=== PATIENT | female | born 1935 | race Caucasian/White ===

== ENCOUNTER 2021-10-23 10:33 | Emergency (ER) | payer MEDICARE, SELFPAY ==
--- NOTE | ~2021-10-23 | CT_ITS ---
EXAMINATION: CT ANGIOGRAM OF THE CHEST WITH AND WITHOUT CONTRAST (CT PULMONARY ANGIOGRAM FOR PE) CLINICAL INFORMATION: Reason for Exam chest heaviness/sob/hx of non-Hodgkin's ? Pe COMPARISON: Chest CT 01/05/2017 TECHNIQUE: Prior to contrast administration, noncontrast localization images were obtained. Subsequently, multidetector volumetric imaging was performed from the thoracic inlet to below the diaphragms following the administration of 71 mL Omnipaque 350 intravenous contrast. No contrast reaction reported Sagittal, coronal, and MIP oblique sagittal reformatted images were obtained on the CT workstation, uploaded to PACS, and reviewed. This CT examination was performed using dose optimization techniques as appropriate, variously including the following: *Automated exposure control *Adjustment of mA and/or kV according to patient size (this includes techniques or standardized protocols for targeted exams where dose is matched to indication/reason for exam; i.e. extremities or head) *Use of iterative reconstruction technique Total exam dose-length product 259 mGy-cm FINDINGS: QUALITY OF STUDY/CONTRAST BOLUS: Satisfactory. PULMONARY ARTERIES: No central or segmental pulmonary emboli. Normal caliber central pulmonary trunk. THORACIC AORTA: No aneurysm or dissection. Mild to moderate vascular calcifications. Great vessel origins are patent. LUNG: Mild bibasilar subsegmental atelectasis. No airspace consolidation. No suspicious pulmonary nodules. Couple small sub-4 mm left upper lobe calcified granulomas are again noted. Central airways are clear. PLEURA: No pleural effusion or pneumothorax. MEDIASTINUM: No cardiomegaly. No appreciable coronary artery vascular calcifications. No mediastinal or hilar lymphadenopathy. Small subcentimeter low-density nodule in the right thyroid lobe, unchanged and of doubtful clinical significance. Left-sided chest port tip terminating in SVC. No evidence of septal bowing or right heart strain. CHEST WALL/AXILLA: No axillary or internal mammary lymphadenopathy. OSSEOUS STRUCTURES: No acute or suspicious osseous abnormality. 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 Acquired partial ankylosis T6-T7 and T8-T9. UPPER ABDOMEN: Moderate-sized hiatal hernia. Visualized solid upper abdominal viscera are grossly unremarkable. Colonic diverticulosis at the visualized hepatic flexure. No reflux of contrast into the hepatic veins to suggest elevated right heart pressures. CT/CT angio chest PE protocol IMPRESSION: 1. No evidence of central or segmental pulmonary embolus. 2. Mild bibasilar atelectasis. No airspace consolidation or effusions. 3. No lymphadenopathy. 4. Moderate-sized hiatal hernia. VTE: negative
--- NOTE | ~2021-10-23 | XR_ITS ---
EXAMINATION: XR CHEST CLINICAL INFORMATION: Chest heaviness COMPARISON: Previous chest x-ray May [address] December 2016 TECHNIQUE: 2 views of the chest were obtained. FINDINGS: The cardiac silhouette does not appear enlarged. The thoracic aorta is tortuous. There is an air-fluid level to projects behind the heart suggestive esophageal hernia. Hilar and mediastinal contours are otherwise unremarkable. There is a left subclavian port with tip projecting over the SVC. The lungs are clear. There is no pleural effusion or pneumothorax. There are degenerative changes of the spine. XR/XR chest 2V IMPRESSION: No evidence for acute disease in the chest.
--- NOTE | ~2021-10-23 | US_ITS ---
EXAMINATION: US VENOUS ULTRASOUND WITH DOPPLER LOWER EXTREMITY, BILATERAL CLINICAL INFORMATION: Elevated d-dimer and free of cancer. . COMPARISON: None TECHNIQUE: Ultrasound of the deep veins is performed from the hip to the calf with compression sonography and color and pulse Doppler assessment. Spectral analysis with color-flow imaging is performed. FINDINGS: RIGHT: There is normal venous compression and respiratory variation and augmented flow. The visualized common femoral vein, superficial femoral vein, profunda femoral vein, popliteal vein, and the trifurcation region shows no evidence of deep venous thrombosis. There is no significant popliteal fossa cyst. There is a anechoic fluid collection medial knee measuring 2.8 x 0.8 x 2.6 cm. LEFT: There is normal venous compression and respiratory variation and augmented flow. The visualized common femoral vein, superficial femoral vein, profunda femoral vein, popliteal vein, and the trifurcation region shows no evidence of deep venous thrombosis. There is no significant popliteal fossa cyst. If the patient's symptoms persist, followup ultrasound in 5 days 7 days might be of value to exclude proximal propagation from a non-visualized calf vein. US/US venous duplex LE BI IMPRESSION: No DVT demonstrated in the bilateral lower extremity. There is mild fluid collection along the right medial posterior knee.
--- NOTE | ~2021-10-23 | CT_ITS ---
EXAMINATION: CT HEAD WITHOUT CONTRAST CLINICAL INFORMATION: Lightheadedness COMPARISON: None TECHNIQUE: Contiguous axial imaging was performed from the skull base to vertex without intravenous administration of contrast. This CT examination was performed using dose optimization techniques as appropriate, variously including the following: *Automated exposure control *Adjustment of mA and/or kV according to patient size (this includes techniques or standardized protocols for targeted exams where dose is matched to indication/reason for exam; i.e. extremities or head) *Use of iterative reconstruction technique DLP: 686 mGy-cm FINDINGS: There is no evidence of acute intracranial hemorrhage or territorial infarction. No abnormal mass effect or midline shift is appreciated. Caban-white differentiation is well preserved. No extra-axial fluid collections. The ventricular system and cortical sulci are prominent, consistent with volume loss. There are areas of low density in the periventricular and subcortical white matter, most consistent with sequelae of microvascular ischemic change. Prominent bilateral basal ganglia calcifications. The osseous structures and soft tissues are normal. There are calcifications of the cavernous internal carotid arteries. The visualized paranasal sinuses and mastoid air cells are well aerated. CT/CT head/brain wo con IMPRESSION: Chronic microvascular ischemic changes with no CT evidence of acute intracranial abnormality.
[2021-10-23 10:43] VITALS: BP 163/66; PULSE 86; RESP 16; TEMP 36.6; O2SAT 99; BMI 34.9
--- NOTE | 2021-10-23 11:21 | ECG_ITS ---
Test Reason : chest heaviness Blood Pressure : / mmHG Vent. Rate : 073 BPM Atrial Rate : 073 BPM P-R Int : 188 ms QRS Dur : 086 ms QT Int : 398 ms P-R-T Axes : 058 -21 054 degrees QTc Int : 438 ms Normal sinus rhythm Normal ECG No previous ECGs available Referred By: [place] Electronically Signed By:TANYA LAO
[2021-10-23 11:55] LABS: Appearance Urine HAZY; Basophils Percent Auto 0.4 % (0-2); Color Urine YELLOW; Glucose Urine UA NEG (NEG); Hematocrit 35.4 % (37.0-47.0); Hemoglobin 11.4 g/dl (12.0-16.0); Leukocyte Esterase Urine 1+ (NEG); Lymphocytes Absolute Auto 0.4 X10*3/uL (1.2-4.9); Lymphocytes Percent Auto 14.5 % (20-40); MANUAL DIFF FLAG SCAN; Mean Corpuscular HGB Conc 32.2 g/dl (31.0-35.0); Mean Corpuscular Hemoglobin 27.9 pg (27.0-33.0); Mean Corpuscular Volume 86.8 fL (80.0-98.0); Mean Platelet Volume 11.7 fL (9.4-12.3); Monocytes Absolute Auto 0.2 X10*3/uL (0.1-1.2); Monocytes Percent Auto 9.2 % (2-11); Neutrophils Absolute Auto 1.9 x10*3/uL (2.0-8.3); Neutrophils Percent Auto 75.9 % (45-73); Nitrite Urine POS (NEG); Red Blood Count 4.08 X10*6/uL (4.20-5.50); Red Cell Distribution Width 15.2 % (11.0-16.0); SCAN SMEAR FLAG 1; UACC Culture Trigger YES; Urine Blood TRACE (NEG); Urine Ketones NEG (NEG); Urine Protein NEG (NEG-TRACE)
[2021-10-23 11:57] VITALS: BP 160/59; PULSE 69
[2021-10-23 11:57] LABS: Platelet Count 87 X10*3/uL (160-400); White Blood Count 2.5 X10*3/uL (4.8-10.8)
[2021-10-23 11:58] VITALS: BP 161/84; PULSE 84
[2021-10-23 11:58] LABS: INTERNATIONAL NORM RATIO 0.9 (0.9-1.1); Prothrombin Time 10.5 SEC (9.9-13.0)
[2021-10-23 12:00] VITALS: BP 158/63; PULSE 87
[2021-10-23 12:12] LABS: Bacteria Urine 4+ /LPF; RBC Urine 0-2 /HPF (0); Squamous Epithelial Cell Urine 1+ /LPF
[2021-10-23 12:16] LABS: Alanine Aminotransferase 9 U/L (0-31); Albumin Level 4.2 g/dL (3.5-5.0); Alkaline Phosphatase 59 U/L (39-117); Anion Gap 12 (12-20); Aspartate Amino Transferase 15 U/L (5-31); Bilirubin Total 0.5 mg/dL (0.0-1.0); Blood Urea Nitrogen 14 mg/dL (9-16); Calcium 8.9 mg/dL (8.4-10.2); Carbon Dioxide 26 mmol/L (22-29); Chloride 106 mmol/L (96-108); Creatinine Clr Calc Pharmacy 51.8; Estimated Glomerular Filt Rate > 60; Glucose Random 87 mg/dL (60-115); Potassium 3.9 mmol/L (3.3-5.1); Sodium 140 mmol/L (135-145)
[2021-10-23 12:20] LABS: B Type Natriuretic Peptide 76 pg/mL (<100); Troponin-I High Sensitivity 10.7 ng/L (<3.5-17.0)
[2021-10-23 12:21] LABS: SLIDE REVIEW VERIFIED
--- NOTE | 2021-10-23 12:37 | ED_ITS ---
HPI - General Adult General Chief complaint: Anxiety Stated complaint: heavy chest, light headed, anxiety Time Seen by Provider: 10/23/21 11:13 Source: patient and family ( at bedside) Related Data Allergies Allergy/AdvReac Type Severity Reaction Status Date / Time No Known Allergies Allergy Verified 10/23/21 10:48 [facility] Social History Social History Advance Directives: No Advance Directives Information Provided: No Physical Exam ED Vital Signs: Vital Signs - 24 hr 10/23/21 10:43 10/23/21 11:57 10/23/21 11:58 Temperature 97.8 F Pulse Rate 86 69 84 Respiratory Rate 16 Blood Pressure 163/66 H 160/59 H 161/84 H Pulse Oximetry 99 Oxygen Delivery Method Room Air 10/23/21 12:00 Temperature Pulse Rate 87 Respiratory Rate Blood Pressure 158/63 H Pulse Oximetry Oxygen Delivery Method BMI result Body Mass Index 34.9 Medical Decision Making Lab Data Result diagrams: 10/23/21 11:44 10/23/21 11:44 Labs: Lab Results 10/23/21 10/23/21 10/23/21 Range/Units 11:44 11:44 11:44 WBC 2.5 L (4.8-10.8) X10*3/uL RBC 4.08 L (4.20-5.50) X10*6/uL Hgb 11.4 L (12.0-16.0) g/dl Hct 35.4 L (37.0-47.0) % MCV 86.8 (80.0-98.0) fL MCH 27.9 (27.0-33.0) pg MCHC 32.2 (31.0-35.0) g/dl RDW 15.2 (11.0-16.0) % Plt Count 87 L (160-400) X10*3/uL MPV 11.7 (9.4-12.3) fL Immature Gran % (Auto) 0.0 (0.0-0.4) % Neut % (Auto) 75.9 H (45-73) % Lymph % (Auto) 14.5 L (20-40) % [place] % (Auto) 9.2 (2-11) % Eos % (Auto) 0.0 (0-4) % Baso % (Auto) 0.4 (0-2) % Lymph # (Auto) 0.4 L (1.2-4.9) X10*3/uL [place] # (Auto) 0.2 (0.1-1.2) X10*3/uL Eos # (Auto) 0.0 (0.0-0.4) X10*3/uL Baso # (Auto) 0.0 (0.0-0.2) X10*3/uL Abs Immat Gran (auto) 0.00 (0.00-0.03) X10*3/uL Absolute Neuts (auto) 1.9 L (2.0-8.3) x10*3/uL Absolute Nucleated RBC 0.000 (0.0-0.012) X10*3/uL Nucleated RBC % (auto) 0.0 (0.0-0.2) /100WBC Smear Tech's Comments VERIFIED PT 10.5 (9.9-13.0) SEC INR 0.9 (0.9-1.1) Sodium 140 (135-145) mmol/L Potassium 3.9 (3.3-5.1) mmol/L Chloride 106 (96-108) mmol/L Carbon Dioxide 26 (22-29) mmol/L Anion Gap 12 (12-20) BUN 14 (9-16) mg/dL Creatinine 0.78 (0.5-1.4) mg/dL Estim Creat Clear Calc 51.8 Estimated GFR > 60 Random Glucose 87 (60-115) mg/dL Calcium 8.9 (8.4-10.2) mg/dL Magnesium 2.0 (1.6-2.6) mg/dL Total Bilirubin 0.5 (0.0-1.0) mg/dL AST 15 (5-31) U/L ALT 9 (0-31) U/L Alkaline Phosphatase 59 (39-117) U/L Troponin I High Sens (<3.5-17.0) ng/L B-Natriuretic Peptide (<100) pg/mL Total Protein 7.0 (6.5-8.0) g/dL Albumin 4.2 (3.5-5.0) g/dL Urine Color Urine Appearance Urine pH (5.0-8.0) Ur Specific Prest[place] (1.005-1.025) Urine Protein (NEG-TRACE) MG/DL Urine Glucose (UA) (NEG) MG/DL Urine Ketones (NEG) MG/DL Urine Blood (NEG) Urine Nitrite (NEG) Ur Leukocyte Esterase (NEG) Urine RBC (0) /HPF Urine WBC (0-4) /HPF Ur Squamous Epith Cells /LPF Urine Bacteria /LPF Stool Occult Blood (NEGATIVE) 10/23/21 10/23/21 10/23/21 Range/Units 11:44 11:44 13:10 WBC (4.8-10.8) X10*3/uL RBC (4.20-5.50) X10*6/uL Hgb (12.0-16.0) g/dl Hct (37.0-47.0) % MCV (80.0-98.0) fL MCH (27.0-33.0) pg MCHC (31.0-35.0) g/dl RDW (11.0-16.0) % Plt Count (160-400) X10*3/uL MPV (9.4-12.3) fL Immature Gran % (Auto) (0.0-0.4) % Neut % (Auto) (45-73) % Lymph % (Auto) (20-40) % [place] % (Auto) (2-11) % Eos % (Auto) (0-4) % Baso % (Auto) (0-2) % Lymph # (Auto) (1.2-4.9) X10*3/uL [place] # (Auto) (0.1-1.2) X10*3/uL Eos # (Auto) (0.0-0.4) X10*3/uL Baso # (Auto) (0.0-0.2) X10*3/uL Abs Immat Gran (auto) (0.00-0.03) X10*3/uL Absolute Neuts (auto) (2.0-8.3) x10*3/uL Absolute Nucleated RBC (0.0-0.012) X10*3/uL Nucleated RBC % (auto) (0.0-0.2) /100WBC Smear Tech's Comments PT (9.9-13.0) SEC INR (0.9-1.1) Sodium (135-145) mmol/L Potassium (3.3-5.1) mmol/L Chloride (96-108) mmol/L Carbon Dioxide (22-29) mmol/L Anion Gap (12-20) BUN (9-16) mg/dL Creatinine (0.5-1.4) mg/dL Estim Creat Clear Calc Estimated GFR Random Glucose (60-115) mg/dL Calcium (8.4-10.2) mg/dL Magnesium (1.6-2.6) mg/dL Total Bilirubin (0.0-1.0) mg/dL AST (5-31) U/L ALT (0-31) U/L Alkaline Phosphatase (39-117) U/L Troponin I High Sens 10.7 (<3.5-17.0) ng/L B-Natriuretic Peptide 76 (<100) pg/mL Total Protein (6.5-8.0) g/dL Albumin (3.5-5.0) g/dL Urine Color YELLOW Urine Appearance HAZY Urine pH 6.0 (5.0-8.0) Ur Specific Prest[place] 1.020 (1.005-1.025) Urine Protein NEG (NEG-TRACE) MG/DL Urine Glucose (UA) NEG (NEG) MG/DL Urine Ketones NEG (NEG) MG/DL Urine Blood TRACE (NEG) Urine Nitrite POS H (NEG) Ur Leukocyte Esterase 1+ H (NEG) Urine RBC 0-2 (0) /HPF Urine WBC 5-9 H (0-4) /HPF Ur Squamous Epith Cells 1+ /LPF Urine Bacteria 4+ /LPF Stool Occult Blood NEGATIVE (NEGATIVE)
[2021-10-23 13:21] LABS: OBS Int Ctl Valid YES; OBS1 NEGATIVE (NEGATIVE)
--- NOTE | 2021-10-23 14:02 | ED.CHESTPAIN ---
HPI - Chest Pain General Chief Complaint: Anxiety Stated Complaint: heavy chest, light headed, anxiety Time Seen by Provider: 10/23/21 11:13 Source: patient and family ( at bedside) Mode of arrival: ambulatory Limitations: no limitations History of Present Illness HPI narrative: 85-year-old female with a past medical history of non-Hodgkin's lymphoma currently on IVIG therapy every 4 weeks has her next appointment on the 10 of November presenting to the ED with complaints of intermittent chest heaviness mid sternal aspect over the past week that has been episodic with associated lightheadedness. She reports that she noticed this morning when she got up from her bed she is not sure she got up too quickly although she felt some lightheadedness and chest heaviness. She did take 0.25 mg of alprazolam which provided no symptomatic relief. She reports that she is under a lot of stressors therefore she related this to anxiety. She denies any dizziness, headaches, recent falls or trauma, changes in vision, jaw pain, nausea/vomiting, paresthesias, arm pain, dyspnea on exertion, orthopnea, palpitations, diarrhea, black or bloody stools, abdominal pain, back pain, flank pain, radiation of the substernal/mid sternal chest pain, lower extremity edema or calf tenderness, recent travel or sick contacts, rashes, cough or any other symptoms complaints or concerns at this time. complaint: chest heaviness Onset (ago): week(s) (1) Timing of current episode: episodic, daily and still present Prior episodes: No Onset: other (Cannot recall though this morning she was just getting ready for breakfast and her normal ADLs) Pain location: substernal Pain radiation: none Severity: mild Quality: heaviness Relieving factors: nothing Exacerbating factors: nothing Treatment prior to arrival: none Risk Factors Coronary artery disease risk factors: none Pulmonary embolism risk factors: malignancy Related Data On Oral Contraceptives: No Previous Rx's Medication Instructions Recorded cefuroxime axetil 500 mg tablet 500 mg PO BID 7 days #14 tabs 10/23/21 diazepam 5 mg tablet (Valium) 5 mg PO TID PRN muscle spasm #20 10/23/21 tabs Allergies Allergy/AdvReac Type Severity Reaction Status Date / Time No Known Allergies Allergy Verified 10/23/21 10:48 Review of Systems Review of Systems: Constitutional : No Weight loss, No Fever, No Chills, No Night Sweats, No Fatigue, No Malaise ENT/Mouth : No Hearing loss, No Ear Pain, No Nasal Congestion, No Sinus Pain, No Hoarseness, No sore throat, No Rhinorrhea, No Swallowing Difficulty Eyes: No Eye Pain, No Swelling, No Redness, No Foreign Body, No Discharge, No Vision Changes Cardiovascular : + Chest Pain, No SOB, No Dyspnea on Exertion, No Orthopnea, No Edema, No Palpitations Respiratory : No Cough, No Sputum, No Wheezing, No Smoke Exposure, No Dyspnea Gastrointestinal : No Nausea, No Vomiting, No Diarrhea, No Constipation, No abdominal Pain, No Hematochezia, No Melena Genitourinary : no irregular bleeding, No Dysuria, No Urinary Frequency, No Hematuria, No Urinary Incontinence, No Urgency, No Flank Pain, No Urinary Flow Changes, No Hesitancy Musculoskeletal : No joint pain, No Myalgias, No Joint Swelling Skin : No Skin Lesions, No rash Neuro : + lightheadedness, No Weakness, No Numbness, No Paresthesias, No Loss of Consciousness, No Dizziness, No Headache Psych : No Anxiety/Panic, No Depression, No SI/HI/AH/VH, No Social Issues, Heme/Lymph: No Bruising, No Bleeding,No Lymphadenopathy Endocrine : No Polyuria, No Polydipsia, No Temperature Intolerance Yes all other systems are reviewed and are negative [facility] Past Medical History Attestation statement: The following information was validated with the patient. Source: old records reviewed, obtained from family and nursing notes reviewed Social History Social History Advance Directives: No Advance Directives Information Provided: No Physical Exam Vital Signs: Vital Signs: Last Vital Signs Temp 96.8 F 10/23/21 17:14 Pulse 75 10/23/21 17:14 Resp 17 10/23/21 17:14 BP 193/75 H 10/23/21 17:14 Pulse Ox 100 10/23/21 17:14 O2 Del Method 10/23/21 17:14 BMI result Body Mass Index 34.9 vital signs have been reviewed as normal and appeared to be correct. Blood pressure 163/66. Heart rate normal. Respiration rate normal. Temperature normal. Oxygen saturation normal. Appearance: Alert. Oriented X3. No acute distress. Head: Normal external exam. Normocephalic. Atraumatic. Eyes: PERRLA. EOMI. Conjunctiva and sclera normal. Eyelids normal. ENT: EAC normal. TM's Normal. Pharynx normal. Uvula midline. Moist mucous membranes. No lesions/ulcerations or masses noted on the tongue. Normal voice. No trismus noted. No drooling noted. No muffled voice noted. Neck: Normal inspection. Neck supple. FROM. No adenopathy. Thyroid Normal. No tracheal deviation noted. No crepitus is noted. No meningeal signs. No neck mass noted. No signs of trauma noted. CVS: Normal heart rate and rhythm. Heart sound normal. Pulses normal throughout. No murmurs/rales/gallops. Respiratory: No respiratory distress. Painless inspiration. Breath sounds normal. No wheezes/rales/rhonchi noted. Chest nontender. No crepitus is noted. No accessory muscle usage noted or decreased air movement noted. No signs of trauma. Abdomen: Soft and nontender. Bowel sounds normal in all 4 quadrants. No distention noted. No organomegaly noted. No visible injury noted. Back: No CVA tenderness. Full range of motion noted. Nontender. No signs of trauma. Patient neuro intact bilaterally and distally on all 4 extremities. Patient's reflexes intact bilaterally and distally on all 4 extremities. No rashes/lesion/induration/fluctuance or signs of infection noted. Skin: Skin warm and dry. Normal skin color. Normal skin turgor. No rashes/lesions/lacerations noted. Extremities: No lower extremity edema. No calf tenderness is noted. Extremities exhibit normal range of motion and nontender. Neuro: Oriented X 3. No motor deficit. No sensory deficit. Reflexes normal. Normal steady gait. No focal neuro deficits noted. CN's II-XII intact bilaterally? Vascular: + radial pulses/+ 2 distal pedal pulses/+2 dorsalis pedis b/l. Normal cap refill. No cyanosis noted to upper extremity nails and lower extremity toes nails. Course Course Course Narrative: 11:20am - 85-year-old female with a past medical history of non-Hodgkin's lymphoma currently on IVIG therapy every 4 weeks has her next appointment on the 10 of November presenting to the ED with complaints of intermittent chest heaviness mid sternal aspect over the past week that has been episodic with associated lightheadedness. She reports that she noticed this morning when she got up from her bed she is not sure she got up too quickly although she felt some lightheadedness and chest heaviness. She did take 0.25 mg of alprazolam which provided no symptomatic relief. She reports that she is under a lot of stressors therefore she related this to anxiety. Plan: Labs, UA, CT scan of brain, orthostatic vitals, chest x-ray an EKG and re-evaluate Reevaluation(s) Reevaluation #1: - labs reviewed patient with an white blood cell count of 2000 although she reports that her oncologist who does her IVIG told her that her white blood cell count has been low. They also told her that she has some anemia she is unsure how anemic she is although her H&H today is 11.4/35.4 she denies black or bloody stools although reports darker stools. Therefore I did a stool occult which was negative. Patient low platelet count of 87. She is unsure if this is new or old although she reports she has had low platelet counts in the past. Troponin 10.7 therefore will will be repeated. UA is positive for nitrates therefore patient with UTI. Otherwise all other labs are within normal limits - EKG is normal sinus rhythm with a ventricular rate of 73 with a normal AR interval normal QRS duration normal QT/QTC interval. No acute ischemic change are noted. No prior EKGs to compare to at this time in our system. - CT scan of brain revealed chronic microvascular ischemic changes with no CT evidence of acute intracranial abnormality. - chest x-ray within normal limits no acute processes noted. - therefore at this time waiting for repeat troponin and D-dimer will re-evaluate. Time: 14:15 Reevaluation #2: - venous duplex ultrasound of bilateral lower extremity negative for DVT although revealed mild fluid collection along the right medial posterior knee although when I examined the patient she does not have any abnormalities and it is not consistent with a cellulitic infection or septic joint and she does not have pain at the knee. - patient was also noted to be hypertensive although she denied any complaints of hypertension and she reports that she no longer had chest pain since this morning or the lightheadedness while she was here all her symptoms had completely resolved and she does not have a history of high blood pressure therefore explained her that she should follow-up with her PCP and right her blood pressure for the next 3 days at least Saturday/ and Saturday and write them down and bring them to the PCP for possible new onset of hypertension. Patient has been at bedside understand agree this plan. - still waiting CTA of chest for PE if negative patient will be discharged with instructions to follow-up with her PCP/oncologist due to low white blood cell count/anemia and low platelet count and instructions return if any new or worsening symptoms. Patient with at bedside understand agree this plan. Time: 18:44 MDM - Chest Pain Medical Records Data Attestation: I reviewed the patient's medical records. Lab Data Attestation: I reviewed the patient's lab results. Result diagrams: 10/23/21 11:44 10/23/21 11:44 Labs: Lab Results 10/23/21 10/23/21 10/23/21 Range/Units 11:44 11:44 11:44 WBC 2.5 L (4.8-10.8) X10*3/uL RBC 4.08 L (4.20-5.50) X10*6/uL Hgb 11.4 L (12.0-16.0) g/dl Hct 35.4 L (37.0-47.0) % MCV 86.8 (80.0-98.0) fL MCH 27.9 (27.0-33.0) pg MCHC 32.2 (31.0-35.0) g/dl RDW 15.2 (11.0-16.0) % Plt Count 87 L (160-400) X10*3/uL MPV 11.7 (9.4-12.3) fL Immature Gran % (Auto) 0.0 (0.0-0.4) % Neut % (Auto) 75.9 H (45-73) % Lymph % (Auto) 14.5 L (20-40) % Marin % (Auto) 9.2 (2-11) % Eos % (Auto) 0.0 (0-4) % Baso % (Auto) 0.4 (0-2) % Lymph # (Auto) 0.4 L (1.2-4.9) X10*3/uL Marin # (Auto) 0.2 (0.1-1.2) X10*3/uL Eos # (Auto) 0.0 (0.0-0.4) X10*3/uL Baso # (Auto) 0.0 (0.0-0.2) X10*3/uL Abs Immat Gran (auto) 0.00 (0.00-0.03) X10*3/uL Absolute Neuts (auto) 1.9 L (2.0-8.3) x10*3/uL Absolute Nucleated RBC 0.000 (0.0-0.012) X10*3/uL Nucleated RBC % (auto) 0.0 (0.0-0.2) /100WBC Smear Tech's Comments VERIFIED PT 10.5 (9.9-13.0) SEC INR 0.9 (0.9-1.1) D-Dimer High Sensitivty 286 NG/ML Sodium 140 (135-145) mmol/L Potassium 3.9 (3.3-5.1) mmol/L Chloride 106 (96-108) mmol/L Carbon Dioxide 26 (22-29) mmol/L Anion Gap 12 (12-20) BUN 14 (9-16) mg/dL Creatinine 0.78 (0.5-1.4) mg/dL Estim Creat Clear Calc 51.8 Estimated GFR > 60 Random Glucose 87 (60-115) mg/dL Calcium 8.9 (8.4-10.2) mg/dL Magnesium 2.0 (1.6-2.6) mg/dL Total Bilirubin 0.5 (0.0-1.0) mg/dL AST 15 (5-31) U/L ALT 9 (0-31) U/L Alkaline Phosphatase 59 (39-117) U/L Troponin I High Sens (<3.5-17.0) ng/L B-Natriuretic Peptide (<100) pg/mL Total Protein 7.0 (6.5-8.0) g/dL Albumin 4.2 (3.5-5.0) g/dL Urine Color Urine Appearance Urine pH (5.0-8.0) Ur Specific Bradford (1.005-1.025) Urine Protein (NEG-TRACE) MG/DL Urine Glucose (UA) (NEG) MG/DL Urine Ketones (NEG) MG/DL Urine Blood (NEG) Urine Nitrite (NEG) Ur Leukocyte Esterase (NEG) Urine RBC (0) /HPF Urine WBC (0-4) /HPF Ur Squamous Epith Cells /LPF Urine Bacteria /LPF Stool Occult Blood (NEGATIVE) 10/23/21 10/23/21 10/23/21 Range/Units 11:44 11:44 13:10 WBC (4.8-10.8) X10*3/uL RBC (4.20-5.50) X10*6/uL Hgb (12.0-16.0) g/dl Hct (37.0-47.0) % MCV (80.0-98.0) fL MCH (27.0-33.0) pg MCHC (31.0-35.0) g/dl RDW (11.0-16.0) % Plt Count (160-400) X10*3/uL MPV (9.4-12.3) fL Immature Gran % (Auto) (0.0-0.4) % Neut % (Auto) (45-73) % Lymph % (Auto) (20-40) % Marin % (Auto) (2-11) % Eos % (Auto) (0-4) % Baso % (Auto) (0-2) % Lymph # (Auto) (1.2-4.9) X10*3/uL Marin # (Auto) (0.1-1.2) X10*3/uL Eos # (Auto) (0.0-0.4) X10*3/uL Baso # (Auto) (0.0-0.2) X10*3/uL Abs Immat Gran (auto) (0.00-0.03) X10*3/uL Absolute Neuts (auto) (2.0-8.3) x10*3/uL Absolute Nucleated RBC (0.0-0.012) X10*3/uL Nucleated RBC % (auto) (0.0-0.2) /100WBC Smear Tech's Comments PT (9.9-13.0) SEC INR (0.9-1.1) D-Dimer High Sensitivty NG/ML Sodium (135-145) mmol/L Potassium (3.3-5.1) mmol/L Chloride (96-108) mmol/L Carbon Dioxide (22-29) mmol/L Anion Gap (12-20) BUN (9-16) mg/dL Creatinine (0.5-1.4) mg/dL Estim Creat Clear Calc Estimated GFR Random Glucose (60-115) mg/dL Calcium (8.4-10.2) mg/dL Magnesium (1.6-2.6) mg/dL Total Bilirubin (0.0-1.0) mg/dL AST (5-31) U/L ALT (0-31) U/L Alkaline Phosphatase (39-117) U/L Troponin I High Sens 10.7 (<3.5-17.0) ng/L B-Natriuretic Peptide 76 (<100) pg/mL Total Protein (6.5-8.0) g/dL Albumin (3.5-5.0) g/dL Urine Color YELLOW Urine Appearance HAZY Urine pH 6.0 (5.0-8.0) Ur Specific Bradford 1.020 (1.005-1.025) Urine Protein NEG (NEG-TRACE) MG/DL Urine Glucose (UA) NEG (NEG) MG/DL Urine Ketones NEG (NEG) MG/DL Urine Blood TRACE (NEG) Urine Nitrite POS H (NEG) Ur Leukocyte Esterase 1+ H (NEG) Urine RBC 0-2 (0) /HPF Urine WBC 5-9 H (0-4) /HPF Ur Squamous Epith Cells 1+ /LPF Urine Bacteria 4+ /LPF Stool Occult Blood NEGATIVE (NEGATIVE) 10/23/21 Range/Units 14:01 WBC (4.8-10.8) X10*3/uL RBC (4.20-5.50) X10*6/uL Hgb (12.0-16.0) g/dl Hct (37.0-47.0) % MCV (80.0-98.0) fL MCH (27.0-33.0) pg MCHC (31.0-35.0) g/dl RDW (11.0-16.0) % Plt Count (160-400) X10*3/uL MPV (9.4-12.3) fL Immature Gran % (Auto) (0.0-0.4) % Neut % (Auto) (45-73) % Lymph % (Auto) (20-40) % Marin % (Auto) (2-11) % Eos % (Auto) (0-4) % Baso % (Auto) (0-2) % Lymph # (Auto) (1.2-4.9) X10*3/uL Marin # (Auto) (0.1-1.2) X10*3/uL Eos # (Auto) (0.0-0.4) X10*3/uL Baso # (Auto) (0.0-0.2) X10*3/uL Abs Immat Gran (auto) (0.00-0.03) X10*3/uL Absolute Neuts (auto) (2.0-8.3) x10*3/uL Absolute Nucleated RBC (0.0-0.012) X10*3/uL Nucleated RBC % (auto) (0.0-0.2) /100WBC Smear Tech's Comments PT (9.9-13.0) SEC INR (0.9-1.1) D-Dimer High Sensitivty NG/ML Sodium (135-145) mmol/L Potassium (3.3-5.1) mmol/L Chloride (96-108) mmol/L Carbon Dioxide (22-29) mmol/L Anion Gap (12-20) BUN (9-16) mg/dL Creatinine (0.5-1.4) mg/dL Estim Creat Clear Calc Estimated GFR Random Glucose (60-115) mg/dL Calcium (8.4-10.2) mg/dL Magnesium (1.6-2.6) mg/dL Total Bilirubin (0.0-1.0) mg/dL AST (5-31) U/L ALT (0-31) U/L Alkaline Phosphatase (39-117) U/L Troponin I High Sens 10.3 (<3.5-17.0) ng/L B-Natriuretic Peptide (<100) pg/mL Total Protein (6.5-8.0) g/dL Albumin (3.5-5.0) g/dL Urine Color Urine Appearance Urine pH (5.0-8.0) Ur Specific Bradford (1.005-1.025) Urine Protein (NEG-TRACE) MG/DL Urine Glucose (UA) (NEG) MG/DL Urine Ketones (NEG) MG/DL Urine Blood (NEG) Urine Nitrite (NEG) Ur Leukocyte Esterase (NEG) Urine RBC (0) /HPF Urine WBC (0-4) /HPF Ur Squamous Epith Cells /LPF Urine Bacteria /LPF Stool Occult Blood (NEGATIVE) Imaging Data Chest x-ray: Attestation: I personally reviewed and interpreted this imaging study as follows: Radiologist's impression: FINDINGS: The cardiac silhouette does not appear enlarged. The thoracic aorta is tortuous. There is an air-fluid level to projects behind the heart suggestive esophageal hernia. Hilar and mediastinal contours are otherwise unremarkable. There is a left subclavian port with tip projecting over the SVC. The lungs are clear. There is no pleural effusion or pneumothorax. There are degenerative changes of the spine. XR/XR chest 2V IMPRESSION: No evidence for acute disease in the chest. CT scan - head: Attestation: I personally reviewed and interpreted this imaging study as follows: Radiologist's impression: FINDINGS: There is no evidence of acute intracranial hemorrhage or territorial infarction.? No abnormal mass effect or midline shift is appreciated. Caban-white differentiation is well preserved.? No extra-axial fluid collections. The ventricular system and cortical sulci are prominent, consistent with volume loss.? There are areas of low density in the periventricular and subcortical white matter, most consistent with sequelae of microvascular ischemic change. Prominent bilateral basal ganglia calcifications. The osseous structures and soft tissues are normal.? There are calcifications of the cavernous internal carotid arteries.? The visualized paranasal sinuses and mastoid air cells are well aerated.? CT/CT head/brain wo con IMPRESSION: Chronic microvascular ischemic changes with no CT evidence of acute intracranial abnormality. Venous duplex ultrasound of bilateral lower extremity: Attestation: I personally reviewed and interpreted this imaging study as follows: Radiologist's impression: FINDINGS: RIGHT: There is normal venous compression and respiratory variation and augmented flow. The visualized common femoral vein, superficial femoral vein, profunda femoral vein, popliteal vein, and the trifurcation region shows no evidence of deep venous thrombosis. ? There is no significant popliteal fossa cyst. There is a anechoic fluid collection medial knee measuring 2.8 x 0.8 x 2.6 cm. LEFT: There is normal venous compression and respiratory variation and augmented flow. The visualized common femoral vein, superficial femoral vein, profunda femoral vein, popliteal vein, and the trifurcation region shows no evidence of deep venous thrombosis. ? There is no significant popliteal fossa cyst. If the patient's symptoms persist, followup ultrasound in 5 days 7 days might be of value to exclude proximal propagation from a non-visualized calf vein. US/US venous duplex LE BI IMPRESSION: No DVT demonstrated in the bilateral lower extremity. ? There is mild fluid collection along the right medial posterior knee. CTA of chest for PE : Attestation: I personally reviewed and interpreted this imaging study as follows: Radiologist's impression: FINDINGS: QUALITY OF STUDY/CONTRAST BOLUS: Satisfactory. PULMONARY ARTERIES: No central or segmental pulmonary emboli. Normal caliber central pulmonary trunk. THORACIC AORTA: No aneurysm or dissection. Mild to moderate vascular calcifications. Great vessel origins are patent. LUNG: Mild bibasilar subsegmental atelectasis. No airspace consolidation. No suspicious pulmonary nodules. Couple small sub-4 mm left upper lobe calcified granulomas are again noted. Central airways are clear. PLEURA: No pleural effusion or pneumothorax. MEDIASTINUM: No cardiomegaly. No appreciable coronary artery vascular calcifications. No mediastinal or hilar lymphadenopathy. Small subcentimeter low-density nodule in the right thyroid lobe, unchanged and of doubtful clinical significance. Left-sided chest port tip terminating in SVC.? No evidence of septal bowing or right heart strain. CHEST WALL/AXILLA: No axillary or internal mammary lymphadenopathy. OSSEOUS STRUCTURES: No acute or suspicious osseous abnormality. 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 Acquired partial ankylosis T6-T7 and T8-T9. UPPER ABDOMEN: Moderate-sized hiatal hernia. Visualized solid upper abdominal viscera are grossly unremarkable. Colonic diverticulosis at the visualized hepatic flexure.? No reflux of contrast into the hepatic veins to suggest elevated right heart pressures. CT/CT angio chest PE protocol IMPRESSION: ? 1. No evidence of central or segmental pulmonary embolus. 2. Mild bibasilar atelectasis. No airspace consolidation or effusions. 3. No lymphadenopathy. 4. Moderate-sized hiatal hernia. ? VTE: negative ECG Data ECG #1: Attestation: I personally reviewed and interpreted this ECG as follows: ECG interpretation date: 10/23/21 ECG interpretation time: 11:42 Prior ECG tracings: not available for review Interpretation: EKG is normal sinus rhythm with a ventricular rate of 73 with a normal AR interval normal QRS duration normal QT/QTC interval. No acute ischemic change are noted. No prior EKGs to compare to at this time in our system. Critical Care Time Critical Care Time Critical Care Time: Yes Total Critical Care Time: 60 Attestation: I personally attest to this time spent taking care of the patient Discharge Plan Discharge Clinical Impression: Atypical chest pain, Leukopenia, Thrombocytopenia, Anemia, Light-headedness, UTI (urinary tract infection), Elevated blood pressure reading Patient Disposition: Home, Self-Care Instructions: Chest Pain (DC), Lightheadedness (ED), Anemia (ED), Thrombocytopenia (ED) Additional Instructions: Do not take the Valium with the Alprazolam together this can cause sedation. Return if any new or worsening symptoms please follow-up with her primary care provider within the next 1-2 weeks due to year low white blood cell count/anemia and low platelet count. Prescriptions: New diazepam [Valium] 5 mg tablet 5 mg PO TID PRN (Reason: muscle spasm) Qty: 20 0RF cefuroxime axetil 500 mg tablet 500 mg PO BID 7 Days Qty: 14 0RF Referrals: Heron Casillas MD [Primary Care Provider] - 1 week (Call tomorrow to make a follow-up appointment within 1 week) Print Language: Luxembourgish
[2021-10-23 14:29] LABS: D Dimer High Sensitivity 286 NG/ML
[2021-10-23 14:32] LABS: Troponin-I High Sensitivity 10.3 ng/L (<3.5-17.0)
[2021-10-23 17:14] VITALS: BP 193/75; PULSE 75; RESP 17; TEMP 36; O2SAT 100
[2021-10-23] MEDS: iohexoL 350 MG/ML 100 ML INFUS..BTL IV (18:07)
== END 2021-10-23 19:26 | disposition home or self-care (01) ==
PROVIDERS: Physician Assistant Medical; Emergency Provider Emergency Medicine Emergency Medical Services; PCP Internal Medicine
DX: R07.89 Other chest pain (principal); R60.0 Localized edema; R42 Dizziness and giddiness; D72.819 Decreased white blood cell count, unspecified; D69.49 Other primary thrombocytopenia; N39.0 Urinary tract infection, site not specified; D69.6 Thrombocytopenia, unspecified; D64.9 Anemia, unspecified; F41.1 Generalized anxiety disorder; F43.0 Acute stress reaction; Z20.822 Contact with and (suspected) exposure to COVID-19; Z79.899 Other long term (current) drug therapy
CPT/HCPCS: 36415; 70450; 71046; 71275; 80053; 81001; 81003; 82272; 83735; 83880; 84484; 85025; 85379; 85610; 87086; 93005; 93970; 99284; Q9967

== ENCOUNTER 2021-10-23 11:54 | Outpatient (REF) | payer MEDICARE, SELFPAY | END 2021-10-23 11:55 | disposition home or self-care (01) | LOC: HO.LNP 11:54 | PROVIDERS: Visit Provider Emergency Medicine | DX: Z13.89 Encounter for screening for other disorder (principal) ==

== ENCOUNTER 2021-11-13 09:48 | Outpatient (REF) | payer MEDICARE, SELFPAY ==
[2021-11-13 11:14] LABS: Appearance Urine CLEAR; Color Urine YELLOW; Glucose Urine UA NEG (NEG); Leukocyte Esterase Urine NEG (NEG); Nitrite Urine NEG (NEG); PH 5.5 (5.0-8.0); Urine Blood NEG (NEG); Urine Ketones NEG (NEG); Urine Protein NEG (NEG-TRACE)
[2021-11-13 11:41] LABS: RBC Urine 0 /HPF (0); Squamous Epithelial Cell Urine 2+ /LPF; WBC Urine 0-2 /HPF (0-4)
== END 2021-11-13 09:49 | disposition home or self-care (01) ==
LOC: HO.MANLDS 09:48
PROVIDERS: Visit Provider Physician Assistant
DX: R30.9 Painful micturition, unspecified (principal)
CPT/HCPCS: 81001